=== PATIENT | female | born 1940 | race Caucasian/White ===

== ENCOUNTER 2019-08-30 14:18 | Emergency (ER) | payer OTHER, SELFPAY ==
[2019-08-30 14:26] VITALS: BP 124/60; PULSE 72; RESP 16; TEMP 36.6; O2SAT 100
--- NOTE | 2019-08-30 14:48 | ED.EAR ---
HPI - Ear Problem General Chief complaint: Ear Stated complaint: CLOGGED EAR Time Seen by Provider: 08/30/19 14:49 Source: patient and RN notes reviewed Mode of arrival: ambulatory Limitations: no limitations History of Present Illness HPI Narrative: Pt is a 79 y/o female who presents to the with c/o her rt ear being clogged. Pt states that she has had it in the past and has to get it cleared out every year. Pt tried using a wax softener at home with no relief. She reports sinus congestion, but denies ear drainage. Complaint: other (ear clogged) Location: right ear Duration: constant Relieving factors: nothing Discharge from ear: Reports no Associated symptoms ear: other (sinus congestion) Treatment prior to arrival: attempt at ear wax removal Related Data Home Medications Medication Instructions Recorded Confirmed exemestane 25 mg PO DAILY 08/30/19 08/30/19 levothyroxine [Synthroid] 50 mcg PO DAILY 08/30/19 08/30/19 simvastatin 10 mg PO DAILY 08/30/19 08/30/19 Allergies Allergy/AdvReac Type Severity Reaction Status Date / Time No Known Allergies Allergy Unknown Unverified 08/30/19 14:25 Review of Systems Review of Systems: Narrative: General/Constitutional: No weight loss,fever Eyes: N0: Redness,discharge Ears/Nose/Throat: No: Epistaxis,ear discharge. Reports rt ear clogging and sinus congestion Respiratory: Denies: Hemoptysis Gastrointestinal: No Vomiting, Bleeding-rectal Skin: No Lumps, eruption Neurologic: No Focal Weakness,Sz Hematologic: Denies: Petechiae/Purpura Psychiatric: No: Suicida ideationl All Other Systems: Reviewed and Negative [facility] Past Medical History Medical History (Updated 08/30/19 @ 15:06 by Juve Guerra MD) HLD (hyperlipidemia) Hypothyroid MVP (mitral valve prolapse) Surgical History Surgical History (Updated 08/30/19 @ 15:03 by Allen Cervantes) H/O lumpectomy H/O mastectomy H/O: hysterectomy History of arthroplasty of right ankle Family History Family History (Updated 04/06/18 @ 14:57 by DOCTOR UNKNOWN) Father Acute myocardial infarction Cerebrovascular accident Social History Social History Smoking status: Never smoker Second hand tobacco smoke exposure: No Alcohol intake: never Comments At time of signature, agree with nursing past medical, surgical, social and family history. There is no relevant family history pertinent to the presenting complaint Exam Narrative: Exam Narrative: General Appearance: Well appearing, Well nourished, No distress EYE: PERRLA , EOMI Ears: Right EAC obstructed by wax; left external ear normal, Auditory canal normal Nose: Normal nose, Nares clear Mouth/Throat: Normal appearing, Normal lips Neck: Supple, No adenopathy Respiratory: Airway patent, No respiratory distress Skin: Warm, Dry Neurological: A&O x3, CN II-X intact Psychiatric: Normal mood, Normal affect Course Vital Signs Vital signs: Vital Signs Temperature 97.9 F 08/30/19 14:26 Pulse Rate 72 08/30/19 14:26 Respiratory Rate 16 08/30/19 14:26 Blood Pressure 124/60 08/30/19 14:26 Pulse Oximetry 100 08/30/19 14:26 Temperature 97.9 F 08/30/19 14:26 Pulse Rate 72 08/30/19 14:26 Respiratory Rate 16 08/30/19 14:26 Blood Pressure 124/60 08/30/19 14:26 Pulse Oximetry 100 08/30/19 14:26 Procedures Ear Wax Removal Right Ear: Ear Wax Removal Date: 08/30/19 Cerumenolytic Used: other Results: Re-examined: cerumen removed completely TM Examination: TM(s) intact, normal appearance Ear Canal Exam: bleeding Noted (scant) Patient Tolerated Procedure: well Complications: no problems Technique: ear canal irrigated and ear canal curetted Medical Decision Making Vital Signs Vital Signs: Vital Signs Temperature 97.9 F 08/30/19 14:26 Pulse Rate 72 08/30/19 14:26 Respiratory Rate 16 08/30/19 14:26 Blood Pressure 124/60 08/30/19 14:26 P
--- NOTE | 2019-08-30 14:55 | PC.NURSE ---
Debrox drops instilled in RT ear as ordered prior to irrigation per Dr Guerra
--- NOTE | 2019-08-30 15:23 | PC.NURSE ---
Rt ear irrigation done with good result by Dr Guerra
== END 2019-08-30 15:22 | disposition home or self-care (01) ==
PROVIDERS: Emergency Provider Emergency Medicine; PCP Family Medicine
DX: H61.21 Impacted cerumen, right ear (principal); E78.5 Hyperlipidemia, unspecified; E03.9 Hypothyroidism, unspecified
CPT/HCPCS: 69210; 99212; A9270; G0463

== ENCOUNTER 2020-05-06 08:23 | Outpatient (CLI) | payer OTHER, SELFPAY ==
--- NOTE | ~2020-05-06 | MM_ITS ---
EXAMINATION: MM screening kaylen RT w joan HISTORY: Screening TECHNIQUE: Craniocaudal and mediolateral oblique 3-D tomosynthesis images were obtained and synthetic 2-D images were generated. CAD analysis was submitted and interpreted. COMPARISON: Comparison to multiple prior studies sequentially, with oldest reviewed study dated 11/2012. BREAST PARENCHYMAL COMPOSITION: The breasts are heterogeneously dense, which may obscure small masses . FINDINGS: There is developing asymmetry in the lower outer quadrant of the right breast. There are no suspicious calcifications. IMPRESSION: 1. Developing right breast asymmetry, lower outer quadrant. 2. Additional mammographic views and possible breast ultrasound are recommended. BI-RADS Category 0: Incomplete: Needs additional imaging evaluation. Reviewed, dictated and finalized at location A. IMPRESSION: 1. Developing right breast asymmetry, lower outer quadrant. 2. Additional mammographic views and possible breast ultrasound are recommended . BI-RADS Category 0: Incomplete: Needs additional imaging evaluation.
== END 2020-05-06 08:24 | disposition home or self-care (01) ==
PROVIDERS: PCP Family Medicine; Visit Provider Physician Assistant
DX: Z12.31 Encounter for screening mammogram for malignant neoplasm of breast (principal); R92.8 Other abnormal and inconclusive findings on diagnostic imaging of breast
CPT/HCPCS: 77063; 77067

== ENCOUNTER 2020-05-29 11:28 | Outpatient (CLI) | payer OTHER, SELFPAY ==
--- NOTE | ~2020-05-29 | MMUS_ITS ---
EXAMINATION: MM diagnostic mammo unilat RT, US breast RT limited HISTORY: Right breast asymmetry on screening mammogram TECHNIQUE: Additional 3-D tomosynthesis images of the right breast were performed and synthetic 2-D i mages were generated. CAD analysis was submitted and interpreted. High resolution limited right breas t ultrasound was performed. COMPARISON: Prior mammograms dating back to 01/06/2015 FINDINGS: MAMMOGRAPHIC FINDINGS: An asymmetry in the posterior third of the breast on the mediolateral oblique view has an appearance similar to prior mammograms with spot compression. No suspicious mass, calcification, or architectura l distortion are identified. ULTRASOUND: There is no evidence of focal abnormal solid or cystic lesion in the vicinity of the mammographic fin ding in question. IMPRESSION: 1. No mammographic or sonographic evidence of malignancy. 2. Recommend routine screening mammography in one year. BI-RADS Category 2: Benign finding(s). Reviewed, dictated and finalized at location A. IMPRESSION: 1. No mammographic or sonographic evidence of malignancy. 2. Recommend routine screening mammography in one year. BI-RADS Category 2: Benign finding(s).
== END 2020-05-29 11:29 | disposition home or self-care (01) ==
PROVIDERS: PCP Family Medicine; Visit Provider Physician Assistant
DX: R92.8 Other abnormal and inconclusive findings on diagnostic imaging of breast (principal)
CPT/HCPCS: 76642; 77065

== ENCOUNTER 2020-10-22 13:29 | Emergency (ER) | payer OTHER, SELFPAY ==
--- NOTE | ~2020-10-22 | XR_ITS ---
XR shoulder RT min 2V 10/22/2020 13:50 Indication: Right shoulder pain Procedure: 4 views right shoulder Comparison: No prior studies for comparison. Findings: No acute fracture, subluxation or dislocation. Osteopenia. There is chondrocalcinosis. Mild osteoarthritis of the glenohumeral joint. No focal soft tissue abnormality. Impression: 1: Mild osteoarthritis of the right shoulder. 2: Chondrocalcinosis. Reviewed, dictated and finalized at location A. Impression: 1: Mild osteoarthritis of the right shoulder. 2: Chondrocalcinosis.
--- NOTE | ~2020-10-22 | XR_ITS ---
XR thoracic spine 3V DATE: 10/22/2020 14:16 INDICATION: Upper back pain. No injury. TECHNIQUE: AP, lateral, swimmer views COMPARISON: None FINDINGS: There is diffuse osteopenia. Dextroscoliosis. There is mild degenerative spurring of the thoracic spine. No fracture or bone destruction. The thoracic pedicles are intact. No paraspinal soft tissue thickeni ng. Aortic arch calcification. IMPRESSION: Diffuse osteopenia Scoliosis Mild degenerative spurring Reviewed, dictated and finalized at location B.
[2020-10-22 13:43] VITALS: BP 133/55; PULSE 69; RESP 16; TEMP 37.1; O2SAT 100
--- NOTE | 2020-10-22 13:52 | ED.GENADULT ---
HPI - General Adult General Chief complaint: Extremity Injury, Upper Stated complaint: PAIN UNDER SHOULDER AREA Time Seen by Provider: 10/22/20 13:52 Source: patient Mode of arrival: ambulatory Limitations: no limitations History of Present Illness HPI narrative: 80-year-old female patient presents to the [facility] with complaints of right-sided mid back pain and complaints of right shoulder popping for the past 2 weeks. Patient denies any specific injury that she can remember. Denies any falling. Patient states she has had breast cancer before on the left side. Patient states that the pain to her back increases when coughing. Patient states she normally walks every day and usually walks with 3 pound weights that she uses to exercise her arms she states that she is stopped using the 3 pound weight to the right arm because it does cause more pain to her back and noticed the shoulder popping. Patient states she is able to move her shoulder okay and really does not have any pain to her shoulder but just noticed a popping. Patient denies taking any Tylenol or ibuprofen since the pain is started. Patient states she did use a warm rice pack on the back area 1 time since the pain started. Related Data Home Medications Medication Instructions Recorded Confirmed calcium carbonate 600 mg (1,500 cap PO 04/16/20 04/16/20 mg)-vitamin D3 500 unit capsule Allergies Allergy/AdvReac Type Severity Reaction Status Date / Time No Known Allergies Allergy Unknown Verified 04/16/20 14:09 Review of Systems Review of Systems: Narrative: CONSTITUTIONAL: Denies fever, chills, or sweats. EYES: Denies visual changes, redness, or discharge. ENT: Denies rhinorrhea, congestion, sore throat, or otalgia. CARDIOVASCULAR: Denies chest pain, palpitations, or edema. RESPIRATORY: Denies cough or dyspnea. GASTROINTESTINAL: Denies abdominal pain, nausea, vomiting, or diarrhea. GENITOURINARY: Denies dysuria or hematuria. SKIN: Denies rash or itching. MUSCULOSKELETAL: Positive right-sided mid back pain, denies joint pain, or myalgia. NEUROLOGIC: Denies headache, numbness, or weakness. PSYCHIATRIC: Denies anxiety or depression. [facility] Past Medical History Medical History (Updated 10/22/20 @ 14:32 by JAVI Purdy) Arthritis Breast cancer Cancer of the skin, basal cell Cerebral palsy Hypothyroid MVP (mitral valve prolapse) Osteoarthritis, multiple sites Surgical History Surgical History H/O lumpectomy H/O mastectomy (~11/2003) H/O: hysterectomy History of arthroplasty of right ankle History of cataract extraction (~10/07/10) History of left mastectomy Family History Family History Father Acute myocardial infarction Cerebrovascular accident Social History Social History Smoking status: Never smoker Second hand tobacco smoke exposure: No Alcohol intake: never Substance use: never Substance use type: does not use Gender identity (if verbalized by the patient): Female Exam Narrative: Exam Narrative: GENERAL: Well-appearing, well-nourished, and in no acute distress. HEAD: Normocephalic, atraumatic. EYES: PERRLA and EOMI. ENT: Nares clear, no rhinorrhea or epistaxis. Mucous membranes moist. NECK: Supple. No lymphadenopathy CHEST: Clear to auscultation. No respiratory distress. HEART: Regular rate and rhythm. No murmur heard. Normal peripheral pulses. ABDOMEN: Soft, nontender, nondistended, normal active bowel sounds. EXTREMITIES: The R shoulder is without obvious asymmetry or deformity when compared to the L shoulder. No surface trauma, ecchymosis, crepitus. No bony deformity or prominence of the humeral head No erythema, warmth, swelling. no tenderness to palpation to clavicle, A to C joint, acromion, scapula or humeral head. No tenderness to palpation o
== END 2020-10-22 14:37 | disposition home or self-care (01) ==
PROVIDERS: Emergency Provider Nurse Practitioner Family; PCP Physician Assistant
DX: M62.830 Muscle spasm of back (principal); M19.011 Primary osteoarthritis, right shoulder; Z85.3 Personal history of malignant neoplasm of breast; Z85.828 Personal history of other malignant neoplasm of skin; G80.9 Cerebral palsy, unspecified; E03.9 Hypothyroidism, unspecified; I34.1 Nonrheumatic mitral (valve) prolapse; Z98.49 Cataract extraction status, unspecified eye; Z90.12 Acquired absence of left breast and nipple
CPT/HCPCS: 72072; 73030; 99214; G0463

== ENCOUNTER → 2021-04-21 13:08 | Outpatient (CLI) | payer OTHER, SELFPAY ==
--- NOTE | ~2021-04-21 | XR_ITS ---
XR chest 2V 04/21/2021 13:24 Indication: Chest pain Procedure: 2 view chest Comparison: 02/05/2019 Findings: There is chronic upper lobe scarring. There is hyperinflation, compatible with emphysema. N o acute focal pneumonia, edema or effusion. No acute osseous abnormality. Impression: 1: No acute cardiopulmonary disease. Reviewed, dictated and finalized at location A. Impression: 1: No acute cardiopulmonary disease.
== END ==
PROVIDERS: PCP Family Medicine; Visit Provider Family Medicine
DX: R07.89 Other chest pain (principal)
CPT/HCPCS: 71046

== ENCOUNTER 2022-03-11 08:49 | Outpatient (CLI) | payer OTHER, SELFPAY ==
--- NOTE | ~2022-03-11 | DEXA_ITS ---
Bone Density Report Name: AYLA CONTRERAS Age: 81 Sex: Female Ethnicity: White Date of : 1940 Indication: osteopenia; cancer; hysterectomy; postmenopausal Referring Provider: JUANITO NEAL Study: Bone densitometry was performed. Exam Date: March 11, 2022 Accession number: [id number] Bone Density: Region BMD T-score Z-score Classification AP Spine(L1-L4) 1.092 0.4 3.1 Normal Femoral Neck (Left) 0.690 -1.4 0.9 Osteopenia Total Hip (Left) 0.676 -2.2 -0.1 Osteopenia Femoral Neck (Right) 0.671 -1.6 0.7 Osteopenia Total Hip (Right) 0.639 -2.5 -0.4 Osteoporosis Total Hip Mean 0.657 -2.4 -0.3 Osteopenia World Health Organization criteria for BMD impression classify patients as: Normal (T-score at or above -1.0), Osteopenia (T-score between -1.0 and -2.5), or Osteoporosis (T-score at or below -2.5). 10-year Fracture Risk: FRAX not reported because: Some T-score for Spine Total or Hip Total or Femoral Neck at or below -2.5 Previous Exams: Region Exam Age BMD T-score BMD Change BMD Change Date g/cm2 vs Baseline vs Previous AP Spine (L1-L4) 03/11/2022 81 1.092 0.4 0.057 (5.6%)* 0.057 (5.6%)* 01/12/2018 77 1.034 -0.1 Total Hip(Left) 03/11/2022 81 0.676 -2.2 -0.077 (-10.2% -0.058 (-7.9%) 01/12/2018 77 0.734 -1.7 -0.019 (-2.6%) -0.019 (-2.6%) 07/18/2012 72 0.754 -1.5 Total Hip(Right) 03/11/2022 81 0.639 -2.5 -0.112 (-14.9% -0.015 (-2.3%) 01/12/2018 77 0.654 -2.4 -0.097 (-12.9% -0.097 (-12.9% 07/18/2012 72 0.750 -1.6 *Denotes significance at 95% confidence level, LSC for AP Spine = 0.022 g/cm2, LSC for Total Hip = 0.027 g/cm2 # Denotes dissimilar scan types or analysis methods Clinical Information Provided by Patient: Has used the following medications: Vitamin D, Calcium Has the following medical conditions: Cancer, Hysterectomy Patient maximum height was 65.5 Menopause Age: 51 Onset of menses at age 12 Number of children 0 Impression: The patient has osteoporosis, based on the Right Total Hip T-score. The BMD for the Total Hip(Left) decreased, changing by -7.9% since the last DXA exam. Discussion: INCREASED RISK OF FRACTURE. BONE DENSITY IS UNDESIRABLY LOW AT ONE OR MORE SKELETAL SITES, CONSISTENT WITH POSTMENOPAUSAL OSTEOPOROSIS. This patient's lowest T-score meets the World Health Organization's (WHO) criteria for osteoporosis at one or more sites (T-score -2.5 or below). In untreated patie
== END 2022-03-11 08:50 | disposition home or self-care (01) ==
PROVIDERS: PCP Family Medicine; Visit Provider Family Medicine
DX: Z78.0 Asymptomatic menopausal state (principal); M81.0 Age-related osteoporosis without current pathological fracture; M85.89 Other specified disorders of bone density and structure, multiple sites
CPT/HCPCS: 77080

== ENCOUNTER 2022-05-23 08:14 | Emergency (ER) | payer OTHER, SELFPAY ==
--- NOTE | 2022-05-23 08:19 | ED.URI ---
HPI - URI/Sore Throat General Chief Complaint: Upper Respiratory Infection Stated Complaint: COUGH/SORE THROAT Time Seen by Provider: 05/23/22 08:33 Source: patient, RN notes reviewed and old records reviewed Mode of arrival: ambulatory Limitations: no limitations History of Present Illness HPI Narrative: 82-year-old female presents to the [facility] with complaints of cough and sore throat for 3 weeks. States in the past she has seen an allergy doctor, states that she was prescribed a nasal spray and to take allergy medication but she does not take it because it irritates her nose. Has not taken anything for her symptoms MD elicited complaint: cough, sore throat, rhinorrhea and nasal congestion Related Data Home Medications Medication Instructions Recorded Confirmed calcium carbonate 600 mg-vitamin 1 cap PO DAILY 04/16/20 05/23/22 D3 12.5 mcg (500 unit) capsule (Calcium 600 with Vitamin D3) Allergies Allergy/AdvReac Type Severity Reaction Status Date / Time No Known Allergies Allergy Unknown Verified 04/27/22 14:16 Review of Systems Review of Systems: All systems reviewed & are unremarkable except as noted in HPI and below Constitutional: Constitutional: Reports no additional constitutional complaints, Denies chills and Denies fever(s) Eyes: Eyes: Reports no additional eye complaints ENT: Reports as per HPI, Reports nasal congestion and Reports sore throat Cardiovascular: Cardiovascular: Reports no additional cardiovascular complaints Respiratory: Respiratory: Reports as per HPI, Denies chest congestion, Reports cough, Denies dyspnea and Denies wheezing Gastrointestinal: Gastrointestinal: Reports no additional gastrointestinal complaints Musculoskeletal: Musculoskeletal: Reports no additional musculoskeletal complaints Integumentary/Breasts: Skin/Breast: Reports system reviewed and no additional complaints, except as docu Neurologic: Reports system reviewed and no additional complaints, except as documented Psychiatric: Psychiatric: Reports no additional psychiatric complaints Allergic/Immunologic: Allergic/Immunologic: Reports no additional allergic/immunologic complaints [facility] Past Medical History Medical History Age related osteoporosis Arthritis Breast cancer Cancer of the skin, basal cell Cerebral palsy Chronic renal insufficiency, stage III (moderate) Hypothyroid MVP (mitral valve prolapse) Osteoarthritis, multiple sites Osteopenia Surgical History Surgical History H/O lumpectomy H/O mastectomy (~11/2003) H/O: hysterectomy History of arthroplasty of right ankle History of cataract extraction (~10/07/10) History of left mastectomy Family History Family History Father Acute myocardial infarction Cerebrovascular accident Grandparent Heart disease Social History Social History Smoking status: Never smoker Second hand tobacco smoke exposure: No Alcohol intake: never Substance use: never Substance use type: does not use Gender identity (if verbalized by the patient): Female Spiritual care concerns: No Agree to blood products: Yes Comments At the time of my signature, I reviewed and agree with the nursing past medical, surgical, social, and family history. There is no relevant family history pertinent to the patient complaint. Exam Const: General: healthy appearing, no acute distress, alert and well nourished Nutritional Appearance: well nourished Orientation/consciousness: patient oriented x3 Limitations: no limitations HENMT: Head: normal to inspection Ears: external ears normal, TM's normal bilaterally and EAC's normal Face/Nose/Sinus: Normal external nose present, Normal nares present and no nasal discharge noted Face and sinus: normal
[2022-05-23 08:24] VITALS: BP 109/66; PULSE 96; RESP 16; TEMP 37; O2SAT 100
== END 2022-05-23 08:53 | disposition home or self-care (01) ==
PROVIDERS: Emergency Provider Nurse Practitioner; PCP Family Medicine
DX: J32.9 Chronic sinusitis, unspecified (principal); R09.82 Postnasal drip; M19.90 Unspecified osteoarthritis, unspecified site; Z85.3 Personal history of malignant neoplasm of breast; G80.9 Cerebral palsy, unspecified; E03.9 Hypothyroidism, unspecified; I34.1 Nonrheumatic mitral (valve) prolapse; M85.80 Other specified disorders of bone density and structure, unspecified site; N18.30 Chronic kidney disease, stage 3 unspecified; Z85.828 Personal history of other malignant neoplasm of skin; M81.0 Age-related osteoporosis without current pathological fracture; Z90.12 Acquired absence of left breast and nipple
CPT/HCPCS: 99213; G0463

== ENCOUNTER 2022-09-22 14:13 | Outpatient (CLI) | payer OTHER, SELFPAY ==
[2022-09-22 17:02] LABS: Albumin Level 4.6 g/dL (3.5-5.1); Anion Gap 6 mmol/L (8-16); Blood Urea Nitrogen 28 mg/dL (7-17); Calcium 9.3 mg/dL (8.4-10.2); Carbon Dioxide 32 mmol/L (22-30); Chloride 97 mmol/L (98-107); Estimated Glomerular Filt Rate 53; Glucose 75 mg/dL (65-110); Phosphorus 4.2 mg/dL (2.5-4.5); Sodium 135 mmol/L (137-145)
[2022-09-22 17:14] LABS: Parathyroid Intact 44.9 pg/mL (7.5-53.5)
[2022-09-22 17:16] LABS: Vitamin D 25 Hydroxy 58.2 ng/mL
== END 2022-09-22 14:14 | disposition home or self-care (01) ==
LOC: ANHWCLAB 14:14
PROVIDERS: PCP Family Medicine; Visit Provider Internal Medicine Endocrinology, Diabetes & Metabolism
DX: M81.0 Age-related osteoporosis without current pathological fracture (principal); R79.89 Other specified abnormal findings of blood chemistry
CPT/HCPCS: 36415; 80069; 82306; 83970

== ENCOUNTER 2022-10-10 08:04 | Emergency (ER) | payer OTHER, SELFPAY ==
[2022-10-10 08:16] VITALS: BP 101/55; PULSE 90; RESP 14; TEMP 37.1; O2SAT 100
--- NOTE | 2022-10-10 08:50 | ED.URI ---
HPI - URI/Sore Throat General Chief Complaint: Upper Respiratory Infection Stated Complaint: cough,sinus drainage,fever Time Seen by Provider: 10/10/22 08:30 Source: patient and RN notes reviewed History of Present Illness HPI Narrative: Patient is an 82-year-old female who presents to urgent care with complaints of possible COVID due to fatigue, nasal congestion, postnasal drainage and sore throat. Patient states that her symptoms started yesterday and her COVID test at home was negative. Patient states that she did have COVID exposure to 5 people and inquire on Tuesday. Patient has not taken anything [id number] for her symptoms. No other acute complaints. Denies any shortness of breath or chest pain. No acute distress noted. Patient aware of the plan of care Some parts of this dictation were generated by voice recognition software and may contain typographical and/or grammatical inaccuracies. Related Data Home Medications Medication Instructions Recorded Confirmed calcium carbonate 600 mg-vitamin 1 cap PO DAILY 04/16/20 10/10/22 D3 12.5 mcg (500 unit) capsule (Calcium 600 with Vitamin D3) Allergies Allergy/AdvReac Type Severity Reaction Status Date / Time ibuprofen AdvReac Mild Unknown Verified 10/10/22 08:15 Review of Systems Review of Systems: CONSTITUTIONAL: Reports of chills and fatigue EYES: Denies visual changes, redness, or discharge. ENT: Reports postnasal drainage, scratchy throat and nasal congestion CARDIOVASCULAR: Denies chest pain, palpitations, or edema. RESPIRATORY: Denies cough or dyspnea. GASTROINTESTINAL: Denies abdominal pain, nausea, vomiting, or diarrhea. GENITOURINARY: Denies dysuria or hematuria. SKIN: Denies rash or itching. MUSCULOSKELETAL: Denies back pain, joint pain, or myalgia. NEUROLOGIC: Denies headache, numbness, or weakness. All other systems reviewed are negative, except as documented in HPI. [facility] Past Medical History Medical History Age related osteoporosis Arthritis Breast cancer Cancer of the skin, basal cell Cerebral palsy Chronic renal insufficiency, stage III (moderate) Hypothyroid MVP (mitral valve prolapse) Osteoarthritis, multiple sites Osteopenia Surgical History Surgical History H/O lumpectomy H/O mastectomy (~11/2003) H/O: hysterectomy History of arthroplasty of right ankle History of cataract extraction (~10/07/10) History of left mastectomy Family History Family History Father Acute myocardial infarction Cerebrovascular accident Grandparent Heart disease Social History Social History Smoking status: Never smoker Second hand tobacco smoke exposure: No Alcohol intake: never Substance use: never Substance use type: does not use Living arrangements: with family Occupation/Education: retired Gender identity (if verbalized by the patient): Female Spiritual care concerns: No Agree to blood products: Yes Comments At the time of my signature, I reviewed and agree with the nursing past medical, surgical, social, and family history. There is no relevant family history pertinent to the patient complaint. Exam Narrative: GENERAL: This is a well-nourished, well-developed patient. Appears fatigued HEAD: normocephalic, atraumatic. EYES: PERRL. Sclera clear/white. Vision is grossly intact. EARS: External ears normal, auditory canals clear and without drainage, TMs normal without perforation. Hearing grossly intact. NOSE: External nose normal with no obvious nasal discharge, nares without redness, clear rhinorrhea. THROAT: Mucous membranes moist, posterior pharynx clear. Mild postnasal drainage NECK: Neck supple, non-tender without lymphadenopathy CARDIOVASCULAR: Regular rate and rhythm RESPIRATORY: Emile
== END 2022-10-10 09:20 | disposition home or self-care (01) ==
PROVIDERS: Emergency Provider Nurse Practitioner Family; PCP Family Medicine
DX: U07.1 COVID-19 (principal); N18.30 Chronic kidney disease, stage 3 unspecified; E03.9 Hypothyroidism, unspecified; Z85.3 Personal history of malignant neoplasm of breast
CPT/HCPCS: 87081; 87426; 87804; 87880; 99213; C9803; G0463

== ENCOUNTER 2022-11-04 07:55 | Outpatient (CLI) | payer OTHER, SELFPAY ==
[2022-11-04 18:44] LABS: Hematocrit 42.2 % (37.0-47.0); Hemoglobin 13.9 g/dL (12.0-15.0); Mean Corpuscular HGB Conc 32.9 g/dl (32-36); Mean Corpuscular Hemoglobin 33.3 pg (26-34); Mean Platelet Volume 10.7 fl (7.4-10.4); Platelet Count Result 221 k/mm3 (150-375); Red Blood Count 4.18 M/mm3 (4.2-5.4); Red Cell Distribution Width 12.4 % (11.5-14.5); White Blood Count 4.5 K/mm3 (4.5-10.0)
[2022-11-04 18:51] LABS: Alanine Aminotransferase 23 U/L (6-35); Albumin Level 4.1 g/dL (3.5-5.1); Alkaline Phosphatase 46 U/L (38-126); Anion Gap 2 mmol/L (8-16); Aspartate Amino Transferase 35 U/L (14-36); Bilirubin,Total 0.9 mg/dL (0.2-1.3); Blood Urea Nitrogen 22 mg/dL (7-17); Carbon Dioxide 34 mmol/L (22-30); Chloride 102 mmol/L (98-107); Cholesterol 164 mg/dL (0-200); Estimated Glomerular Filt Rate 53; Glucose 93 mg/dL (65-110); HDL Direct 62 mg/dL; Potassium 4.8 mmol/L (3.4-5.0); Sodium 138 mmol/L (137-145); Triglycerides 70 mg/dL (<150)
[2022-11-04 19:02] LABS: LDL Cholesterol Direct 76 mg/dL
[2022-11-05 03:35] LABS: Free T4 Free Thyroxine Reflex 1.23 ng/dL (0.78-2.19)
[2022-11-05 05:05] LABS: Total Triiodothyronine (T3) 1.01 NG/ML (0.97-1.69)
== END 2022-11-04 07:56 | disposition home or self-care (01) ==
LOC: ANHGOSHLAB 07:56
PROVIDERS: PCP Family Medicine; Visit Provider Family Medicine
DX: E78.2 Mixed hyperlipidemia (principal); N18.30 Chronic kidney disease, stage 3 unspecified; R53.83 Other fatigue; E03.9 Hypothyroidism, unspecified; G25.81 Restless legs syndrome
CPT/HCPCS: 36415; 80053; 80061; 82728; 84439; 84443; 84480; 85027

== ENCOUNTER 2023-01-18 09:47 | Outpatient (CLI) | payer OTHER, SELFPAY ==
--- NOTE | ~2023-01-18 | US_ITS ---
US abdomen limited INDICATION: Right lower quadrant pain PROCEDURE: Realtime right upper abdominal ultrasound. COMPARISON: No prior studies for comparison. FINDINGS: The pancreas is normal without focal mass or pancreatic ductal dilation. Liver echotexture is normal without focal mass or intrahepatic biliary dilatation. There is normal directional flow i n the portal vein. Gallbladder is not visualized, possibly surgically absent. Common bile duct measures 3 mm. No sonog raphic Williamson's sign. There is a right pleural effusion. IMPRESSION: 1: Right pleural effusion. Reviewed, dictated and finalized at location L. IMPRESSION: 1: Right pleural effusion.
== END 2023-01-18 09:48 | disposition home or self-care (01) ==
PROVIDERS: PCP Family Medicine; Visit Provider Physician Assistant Medical
DX: R10.11 Right upper quadrant pain (principal); J90 Pleural effusion, not elsewhere classified
CPT/HCPCS: 76705

== ENCOUNTER 2023-01-26 07:12 | Outpatient (CLI) | payer OTHER, SELFPAY ==
--- NOTE | ~2023-01-26 | CT_ITS ---
Clinical Indication: Abdominal pain, dyspnea CT Scan of the Chest, Abdomen, and Pelvis with Contrast: Technique: Contiguous sections were acquired throughout the chest, abdomen, and pelvis after intraven ous administration of 100 cc of Omnipaque 350. Dose reduction technique was used on this scan by uti patriciaing automated exposure control and iterative reconstruction technique. The dose-length product (DL P) was 303.72 mGy-cm. Findings: There is no evidence of any significant mediastinal, hilar or axillary lymphadenopathy. The mediastin al soft tissues and vascular structures are unremarkable. Evidence of prior left mastectomy noted. Cvqto-rr-nxtvyvrg right pleural effusion is present. Minimal left pleural effusion present. No perica rdial effusion. There are multiple small nodules along the fissures in the right lung. There is probable mild post ra diation change in the left upper lobe. There is a 1.7 cm hypodense lesion in the right hepatic lobe (axial image 129). There is an additiona l hypodense, noncystic lesion in the more inferior right hepatic lobe, measuring 1.0 cm (axial image 147). There are multiple additional smaller, scattered subcentimeter hypodense hepatic lesions, predo minantly within the right hepatic lobe. The spleen, pancreas, gallbladder, adrenals and kidneys are w ithin normal limits. No evidence of aortic aneurysm. No lymphadenopathy. No bowel obstruction. Questionable bowel wall thickening gastric antrum versus underdistention. Large bowel is poorly evaluated due to underdistention.. Urinary bladder is unremarkable. Patient appears to be post hysterectomy. No definite adnexal mass se en. Minimal ascites present in the pelvis. Impression: Multiple hypodense hepatic lesions, largest measuring 1.7 cm, suspicious for metastatic disease until proven otherwise. Itvgy-ux-raxlknwk right pleural effusion. Minimal left pleural effusion. Questionable mild wall thickening gastric antrum versus underdistention. Poorly distended large bowel limits evaluation. Minimal ascites. Multiple small nodules along the fissures in the right lung, indeterminate. These are probably too sm all for tissue sampling. Continued follow-up advised. Reviewed, dictated and finalized at location M. Impression: Multiple hypodense hepatic lesions, largest measuring 1.7 cm, suspicious for me tastatic disease until proven otherwise. Uaqeo-ns-kvguhapn right pleural effusion. Minimal left pleural effusion. Questionable mild wall thickening gastric antrum versus underdistention. Poorly distended large bowel limits evaluation. Minimal ascites. Multiple small nodules along the fissures in the right lung, indeterminate. The se are probably too small for tissue sampling. Continued follow-up advised.
== END 2023-01-26 07:13 | disposition home or self-care (01) ==
PROVIDERS: PCP Family Medicine; Visit Provider Physician Assistant Medical
DX: J90 Pleural effusion, not elsewhere classified (principal); R06.00 Dyspnea, unspecified; R10.9 Unspecified abdominal pain; K76.9 Liver disease, unspecified; R18.8 Other ascites; R91.8 Other nonspecific abnormal finding of lung field
CPT/HCPCS: 71260; 74177; Q9967

== ENCOUNTER 2023-02-10 07:17 | Outpatient (CLI) | payer OTHER, SELFPAY ==
[2023-02-09 09:23] VITALS: BMI 16.7
--- NOTE | 2023-02-09 09:25 | PC.NURSE ---
Pre Radiology instructions Report to the outpatient dru larios on date __02/10/23___ at time __07 for procedure Time: __929__ YOU MAY BE MONITORED AT HOSPITAL FOR UP TO 4 HOURS AFTER YOUR PROCEDURE. A visitor will be allowed to accompany the patient into the hospital. You and your visitor will be asked to self-screen and do not enter if you have any COVID symptoms. A mask is OPTIONAL within the hospital. Patients are to have no food or drink 6 hours prior to procedure time (0330 AM) Driving will be restricted after the procedure, you must have a person to drive you home. Labs will be drawn in preop area and once reviewed, you will be taken to radiology area for procedure. When the procedure is completed, you will be taken to outpatient where you will be monitored for several hours. You may have one visitor in this area. Other than holding anti-coagulants, patient may take other medication(s) as scheduled. Prior to your appointment date patients are instructed to hold anti-coagulants after discussing with ordering provider to stop. If unable to discontinue anti-coagulants please notify radiologist. ? No aspirin or warfarin (Coumadin) for 7 days prior to the procedure. ? No clopidogrel (Plavix), ticagrelor (Brilinta), prasugrel (Effient) or dabigatran (Pradaxa) for 5 days prior to the procedure. ? No rivaroxaban (Xarelto), apixaban (Eliquis), dipyridamole (Aggrenox or Persantine) or cilostazol (Pletal) for 2 days prior to the procedure. Medications to discontinue per physician: ____N/A____ Date to take last dose: Please leave all valuables, including medications, at home the day of procedure. The hospital will not accept responsibility for valuables. Wear comfortable, loose fitting clothing.? Follow any additional instructions given to you from ordering provider. Telephone instructions given to ____PATIENT and asked if any additional questions and then verbalized understanding. Patient advised to call scheduling provider office or registration scheduling [phone] if any additional questions.
[2023-02-10] VITALS (11 sets, daily range): BP systolic 103–138; BP diastolic 53–83; PULSE 74–82; RESP 14–16; TEMP 36.4–36.6; O2SAT 100
--- NOTE | ~2023-02-10 | US_ITS ---
EXAMINATION: US biopsy liver DATE: 02/10/2023 10:44 INDICATION: Hepatomegaly. Multiple indeterminate liver lesions seen on prior CT suspicious for metast atic disease. TECHNIQUE: The procedure including the risks and benefits was discussed with the patient. Risks discu ssed included bleeding and infection. The patient understood the risks and agreed to proceed. The sk in overlying the liver was prepped and draped in usual sterile fashion. Anesthetic was administered with 1% lidocaine subcutaneously. An 18 gauge core biopsy needle was advanced under continuous ultra sound observation to the lesion of interest. 4 core biopsy specimens were obtained. The needle was removed and the entry site was cleaned and dressed. Post procedure ultrasound demonstrated no hemorr jeff. FINDINGS: Ultrasound images demonstrate a few scattered subtle iso to slightly hyperechoic nodules wi th hypoechoic halos in the right hepatic lobe measuring up to 1.5 cm maximal diameter. Subsequent lena ges demonstrate biopsy needles advanced through one of the lesions of concern. IMPRESSION: 1. Successful Ultrasound-guided biopsy of one of a few subtle nodules in the right hepatic lobe which are concerning for metastatic disease. Reviewed, dictated and finalized at location A. IMPRESSION: 1. Successful Ultrasound-guided biopsy of one of a few subtle nodules in the ri ght hepatic lobe which are concerning for metastatic disease.
[2023-02-10 08:49] LABS: Mean Platelet Volume 9.7 fl (7.4-10.4); Platelet Count Result 239 k/mm3 (150-375)
[2023-02-10 08:59] LABS: Prothrombin Time 13.5 Seconds (11.1-14.7)
== END 2023-02-10 14:20 | disposition home or self-care (01) ==
PROVIDERS: PCP Family Medicine; Referring Provider Physician Assistant Medical; Visit Provider Radiology Diagnostic Radiology
PROC: BF45ZZZ Ultrasonography of Liver (ICD-10-PCS; CPT 47000; principal; 2023-02-10 09:30)
DX: R16.0 Hepatomegaly, not elsewhere classified (principal)
CPT/HCPCS: 36415; 47000; 76942; 85049; 85610; 88307; 88342; 88360

== ENCOUNTER 2023-02-22 11:00 | Outpatient (RCR) | payer OTHER, SELFPAY ==
[2022-10-28 16:22] LABS: Albumin Level 4.2 g/dL (3.5-5.1); Calcium 9.2 mg/dL (8.4-10.2)
[2022-11-01 14:13] VITALS: BP 126/50; PULSE 71; RESP 10; TEMP 35.9; O2SAT 100
[2022-11-01] MEDS: DENOSUMAB 60 MG/ML SYRINGE SUB-Q (14:22)
[2023-02-22 12:12] LABS: Basophils Absolute Auto 0.1 K/mm3 (0.0-0.1); Basophils Percent Auto 0.9 % (0.2-1.2); Eosinophils Percent Auto 0.7 % (0-4.4); Hematocrit 46.1 % (37.0-47.0); Hemoglobin 15.3 g/dL (12.0-15.0); Immature Granulocyte Absolute 0.02 K/mm3 (0.00-0.031); Immature Granulocyte Percent A 0.4 % (0-0.5); Lymphocytes Absolute Auto 0.68 K/mm3 (0.9-3.2); Lymphocytes Percent Auto 12.3 % (18.3-44.2); Mean Corpuscular HGB Conc 33.2 g/dl (32-36); Mean Corpuscular Hemoglobin 32.8 pg (26-34); Mean Corpuscular Volume 98.9 fl (80-100); Mean Platelet Volume 9.6 fl (7.4-10.4); Monocytes Absolute Auto 0.6 K/mm3 (0.1-0.6); Monocytes Percent Auto 10.5 % (2.6-8.5); Neutrophils Absolute Auto 4.2 K/mm3 (1.3-6.7); Neutrophils Percent Auto 75.2 % (45.5-73.1); Platelet Count Result 218 k/mm3 (150-375); Red Blood Count 4.66 M/mm3 (4.2-5.4); Red Cell Distribution Width 12.1 % (11.5-14.5); White Blood Count 5.6 K/mm3 (4.5-10.0)
[2023-02-22 13:33] LABS: Alanine Aminotransferase 51 U/L (6-35); Albumin Level 4.4 g/dL (3.5-5.1); Alkaline Phosphatase 36 U/L (38-126); Anion Gap 9 mmol/L (8-16); Aspartate Amino Transferase 47 U/L (14-36); Bilirubin,Total 0.7 mg/dL (0.2-1.3); Blood Urea Nitrogen 26 mg/dL (7-17); Calcium 10.2 mg/dL (8.4-10.2); Carbon Dioxide 31 mmol/L (22-30); Chloride 98 mmol/L (98-107); Estimated Glomerular Filt Rate 53; Glucose 103 mg/dL (65-110); Potassium 4.8 mmol/L (3.4-5.0); Sodium 138 mmol/L (137-145)
--- NOTE | 2023-02-23 20:28 | PDONCCN ---
HPI - Date of Consult Date/Time: 02/23/23 20:28 Requesting Physician: Armond Carrillo MD Primary Care Provider: Sindy Bishop MD - Consult Narrative Reason for consult: Metastatic Breast Cancer to Liver Narrative: Vinita Andres is a 82 year old female who is presenting to oncology clinic to establish care for recent diagnosis of metastatic breast cancer to the Liver by biopsy done 02/10/23. 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 She underwent lumpectomy and axillary node dissection. There was component of invasive lobular carcinoma in the surgical specimen and she was upstaged to Stage I disease with microinvasion. 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 She underwent left breast mastectomy in 12/2003 and was started on Arimidex in 12/2003 In 07/2005 she was noted to have recurrence at mastectomy scar site with several skin nodules. The biopsy showed recurrent breast carcinoma with similar histology. PET scan was negative for distant metastasis. She underwent another round of radiation which she completed in 08/2005. Radiation was performed by Dr. Jurado. She was followed by medical oncologist Dr. Thompson Garces of [facility] with last visit on 05/27/2015. Patient then requested to be followed by her PCP. Per Oncology notes when she last saw Dr. Garces she was on Arimidex. However, patient states that she has been on Exemestane 25mg daily. In 12/2022 patient presented to her PCP for right sided abdominal pain, early satiety and 10 pound weight loss. her baseline weight over the years was 115 and now she is weighing 95 pound. A ultrasound of abdomen was performed on 01/18/23 which showed no abnormality. A CT scan of chest/abd/pelvis was done 01/26/23 which showed a 1.7 cm hypodense lesion in the right hepatic lobe. There was an additional hypodense, noncystic lesion in the more inferior right hepatic lobe, measuring 1.0 cm. There were multiple additional smaller, scattered subcentimeter hypodense hepatic lesions, predominantly within the right hepatic lobe. There wer multiple small nodules along the fissures in the right lung Patient underwent right liver mass biopsy on 02/10/23 which shows metastatic recurrent breast carcinoma. ER 90%, [place] 20% and Her 2 negative. She is here for further management of now metastatic breast cancer. Review of Systems - Review of Systems Patient reports that she has persistent nausea not relieved by zofran and has no appetite. She has lost 10 pounds from her baseline weight and now weighing 95 pounds. Right abdominal pain has resolved. She denies chest pain, dyspnea, cough or hemoptysis. She denies bone pain. Denies hematochezia or melena. No hematuria. She has fatigue and low energy. No dizziness, headache, syncope. No CVA or TIA. [facility] Medical History: Medical History (Last Reviewed 01/11/23 @ 13:30 by Juany Thornton [facility]) Age related osteoporosis Arthritis Breast cancer Cancer of the skin, basal cell Cerebral palsy Chronic renal insufficiency, stage III (moderate) Hypothyroid MVP (mitral valve prolapse) Osteoarthritis, multiple sites Osteopenia Surgical History: Surgical History (Last Reviewed 01/11/23 @ 13:30 by Juany Thornton [facility]) H/O lumpectomy H/O mastectomy Onset Date: ~11/2003 H/O: hysterectomy History of arthroplasty of right ankle History of cataract extraction Onset Date: ~10/07/10 History of left mastectomy Family History: Family History (Last Reviewed 01/11/23 @ 13:30 by Juany Thornton CMA) Father Acute myocardial infarction Cerebrovascular accident Grandparent Heart disease - Social Hi
[2023-02-26 05:11] LABS: CA 15-3 11 U/mL (<32)
== END 2023-03-08 12:57 ==
LOC: AMCINF 11:00
PROVIDERS: PCP Family Medicine; Referring Provider Internal Medicine Endocrinology, Diabetes & Metabolism; Visit Provider Internal Medicine Hematology & Oncology
DX: M81.0 Age-related osteoporosis without current pathological fracture (principal); M85.80 Other specified disorders of bone density and structure, unspecified site; C50.919 Malignant neoplasm of unspecified site of unspecified female breast; C78.7 Secondary malignant neoplasm of liver and intrahepatic bile duct; N18.30 Chronic kidney disease, stage 3 unspecified; I34.1 Nonrheumatic mitral (valve) prolapse; E03.9 Hypothyroidism, unspecified; Z85.3 Personal history of malignant neoplasm of breast; Z78.0 Asymptomatic menopausal state
CPT/HCPCS: 36415; 80053; 82040; 82310; 85025; 86300; 96372; J0897